=== PATIENT | female | born 1970 | race American Indian/Alaskan Native ===

== ENCOUNTER 2018-01-15 10:05 | Day surgery (SDC) | payer OTHER ==
[2018-01-06 14:25] VITALS: BMI 23.6
[2018-01-15] MEDS ORDERED: Lidocaine 1% Inj (20ml) ONE (12:42)
[2018-01-15] MEDS ORDERED: Propofol 10 mg/ml Inj (20 ML) ONE (12:43)
[2018-01-15] MEDS ORDERED: Lactated Ringer's 1,000 ML IV SCH (12:45)
[2018-01-15 13:45] VITALS: BP 102/65
[2018-01-15 14:03] VITALS: PULSE 54; RESP 16; TEMP 97.9; O2SAT 100
== END 2018-01-15 14:26 | disposition home or self-care (01) ==
LOC: ENDO 10:05
PROVIDERS: ATTEND Internal Medicine Gastroenterology
DX: Z12.11 Encounter for screening for malignant neoplasm of colon (principal); Z80.0 Family history of malignant neoplasm of digestive organs; K64.8 Other hemorrhoids
CPT/HCPCS: 45378; 84703; J2704; J7040; J7120